=== PATIENT | female | born 1950 | race Caucasian/White ===

== ENCOUNTER 2019-04-07 16:24 | Inpatient (IN) | payer OTHER ==
[~2019-04-07] VITALS: Ht 149.9 cm; Wt 5.4 kg
[~2019-04-07 16:24] MED LIST: COZ50 PO; FLA500 PO; GOOD SENSE ASPI81 M3 PO; LAC PO; LEVAQUIN750 MG PO; LIPI10 PO; LOSARTAN POTASS25 M1 PO; METFORMIN HCL1000 MG PO; NEU300 PO; OMEPRAZOLE DR20 M1 PO; OSCD PO
[2019-04-07 16:30] VITALS: Ht 149.9 cm; Wt 5.4 kg
[2019-04-07 17:35] LABS: BASOPHIL % 0.6 % (0-2); PLATELET COUNT 234 x10^3mcL (130-400); RED CELL DISTRIBUTION WIDTH 13.8 % (11.5-14.5)
[2019-04-07 17:36] LABS: UA SPECIFIC GRAVITY 1.015 (1.005-1.035); microscopic required? YES; urine erythrocyte NEGATIVE (NEGATIVE)
[2019-04-07 17:48] LABS: CALCIUM 8.8 mg/dL (8.5-10.1); CARBON DIOXIDE 32.1 mmol/L (21-32); CHLORIDE SERUM 104 mmol/L (98-107); CREATININE SERUM 0.8 mg/dL (0.6-1.0); GFR1 > 60 mL/min; GLUCOSE SERUM 114 mg/dL (74-106); SODIUM SERUM 142 mmol/L (136-145)
[2019-04-07 17:53] LABS: ALBUMIN 3.5 g/dL (3.4-5.0); ALKALINE PHOSPHATASE 109 U/L (46-116); ALT/SGPT 23 U/L (14-59); AST/SGOT 25 U/L (15-37); LIPASE 244 IU/L (73-393); TOTAL PROTEIN, SERUM 6.8 g/dL (6.4-8.2)
[2019-04-08 00:29] VITALS: BP 152/55
[2019-04-08 06:38] LABS: CALCIUM 8.6 mg/dL (8.5-10.1); CARBON DIOXIDE 28.1 mmol/L (21-32); CHLORIDE SERUM 106 mmol/L (98-107); CREATININE SERUM 0.7 mg/dL (0.6-1.0); GFR1 > 60 mL/min; GLUCOSE SERUM 115 mg/dL (74-106); POTASSIUM SERUM 3.8 mmol/L (3.5-5.1); SODIUM SERUM 142 mmol/L (136-145)
[2019-04-08 07:33] LABS: BASOPHIL % 0.8 % (0-2); PLATELET COUNT 212 x10^3mcL (130-400); RED CELL DISTRIBUTION WIDTH 13.7 % (11.5-14.5)
[2019-04-08 09:22] VITALS: BP 129/39
[2019-04-08 13:25] VITALS: BP 144/56
== END 2019-04-08 14:37 | disposition left against medical advice (07) | DRG 392 ==
LOC: ED 16:24 → DU 23:25
PROVIDERS: Emergency Medicine; Internal Medicine; ADMIT Internal Medicine Pulmonary Disease
DX: R13.10 Dysphagia, unspecified (principal); I10 Essential (primary) hypertension; K21.9 Gastro-esophageal reflux disease without esophagitis; E11.9 Type 2 diabetes mellitus without complications; Z79.84 Long term (current) use of oral hypoglycemic drugs; F17.210 Nicotine dependence, cigarettes, uncomplicated
CPT/HCPCS: 82962; 99406; J2270; J7030; Q0092